=== PATIENT | male | born 1970 | race Caucasian/White ===

== ENCOUNTER 2023-01-13 10:26 | Outpatient (OUT) | payer BC, SELFPAY ==
--- NOTE | 2023-01-13 10:36 | XR_ITS ---
The [place] [id number] Patient Name: JORDEN ALEXANDRE MRN: [id number] date: 1970 Sex: M Assigned Patient Location: RAD Current Patient Location: [facility] Accession/Order Number: [id number] Exam Date: 01/13/2023 10:47 Report Date: 01/13/2023 11:11 At the request of: TONE BAIN Procedure: XR knee LT 3V EXAM: XR knee LT 3V HISTORY: Left knee pain M25.562 COMPARISON: None. TECHNIQUE: 3 views FINDINGS: No acute fracture or dislocation. No significant degenerative changes. Unremarkable soft tissues. XR/XR knee LT 3V IMPRESSION: Unremarkable exam. Electronically authenticated by: BLAINE RAMEY Date: 01/13/2023 11:11
== END 2023-01-13 10:27 | disposition home or self-care (01) ==
PROVIDERS: PCP Nurse Practitioner Family; Visit Provider Nurse Practitioner Family
DX: M25.562 Pain in left knee (principal)
CPT/HCPCS: 73562

== ENCOUNTER 2023-01-25 11:57 | Outpatient (OUT) | payer BC, SELFPAY ==
[2023-01-25 13:32] LABS: Estimated Average Glucose 123 mg/dL; Glycohemoglobin A1C 5.9 % (4.5-6.2)
[2023-01-26 12:09] LABS: Insulin 9.1 uIU/mL (2.6-24.9)
== END 2023-01-25 11:58 | disposition home or self-care (01) ==
LOC: LAB 11:59
PROVIDERS: PCP Nurse Practitioner Family; Visit Provider Nurse Practitioner Family
DX: B37.9 Candidiasis, unspecified (principal)
CPT/HCPCS: 36415; 83036; 83525

== ENCOUNTER 2023-04-25 11:03 | Emergency (ER) | payer BC, SELFPAY ==
[2023-04-25] VITALS (13 sets, daily range): BP systolic 134–160; BP diastolic 92–114; PULSE 75–95; RESP 12–17; TEMP 36.7; O2SAT 98; BMI 27.5
--- NOTE | 2023-04-25 11:18 | ECG_ITS ---
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
--- NOTE | 2023-04-25 11:18 | XR_ITS ---
The [address] [address] Patient Name: JORDEN ALEXANDRE MRN: [id number] date: 1970 Sex: M Assigned Patient Location: ER Current Patient Location: ER Accession/Order Number: [id number] Exam Date: 04/25/2023 11:33 Report Date: 04/25/2023 11:55 At the request of: MAXINE MAE Procedure: XR chest 1V EXAMINATION: XR chest 1V 04/25/2023 8:53 AM PST HISTORY: HTN, dizziness TECHNIQUE: Single frontal view of the chest acquired. COMPARISONS: None. FINDINGS: Lines/tubes/other: None. Heart and mediastinum: Cardiac silhouette is upper limits of normal for size. Bones: No acute osseous abnormality. Lungs: Mild linear atelectasis and/or scarring in the left base. Mild hazy opacification of the right base. No pulmonary edema. Pleura: There is no significant pleural effusion or pneumothorax. Other: None. XR/XR chest 1V IMPRESSION: Mild right basilar opacification. Differential includes atelectasis, aspiration, or pneumonia. Electronically authenticated by: EMILY OVALLE Date: 04/25/2023 11:55
--- NOTE | 2023-04-25 11:19 | ED_ITS ---
HPI - Dizziness General Chief Complaint: Dizziness Stated Complaint: HIGH BLOOD PRESSURE Time Seen by Provider: 04/25/23 11:10 Source: patient Mode of arrival: walk-in History of Present Illness HPI Narrative: new onset htn as PT for C5-C6 neck problems Dizziness/light-headedness with a couple episode of imbalance No ear pain or fullness but he does have ringing in the ears that worsens with movements of the head into certain positions. PCP is Karen Thapa. Related Data Home Medications Medication Instructions Recorded Confirmed cyclobenzaprine 10 mg tablet 10 mg PO .HS PRN muscle spasm 04/25/23 04/25/23 Previous Rx's Medication Instructions Recorded lisinopril 10 mg tablet 10 mg PO DAILY #30 tabs 04/25/23 Allergies Allergy/AdvReac Type Severity Reaction Status Date / Time Penicillins Allergy Severe Verified 04/25/23 11:16 Exam Narrative Exam Narrative: Nurses notes and vital signs reviewed and patient is not hypoxic. afebrile General: Well-appearing and in no apparent distress. Skin: Warm, dry, no pallor noted. No rash. Head: Normocephalic, atraumatic. Neck: Supple, no JVD or carotid bruits Eye: Pupils are equal, round and EOMI. No scleral icterus. Ears, Nose, Mouth, and Throat: TMs are clear, no nasal mucosal hypertrophy. Oral mucosa is moist Cardiovascular: Regular Rate and Rhythm without murmur, gallop or rub. Respiratory: No accessory muscle use or respiratory distress. Lungs are clear to auscultation, no wheezing, rales or rhonchi Musculoskeletal: normal ROM Neurological: A&O x4. No cranial nerve dysfunction observed. No truncal ataxia. Moves all extremities. Sensation intact. Psychiatric: Cooperative and interactive. Normal mood and affect. Constitutional Vital Signs, click to edit/add: Last Vital Signs Temp 98.0 F 04/25/23 11:08 Pulse 76 04/25/23 12:40 Resp 13 04/25/23 12:40 BP 134/92 H 04/25/23 12:30 Pulse Ox 98 04/25/23 11:08 O2 Del Method Room Air 04/25/23 11:08 Course Vital Signs Vital signs: Vital Signs Temperature 98.0 F 04/25/23 11:08 Pulse Rate 82 04/25/23 11:08 Respiratory Rate 16 04/25/23 11:08 Blood Pressure 148/100 H 04/25/23 11:08 Pulse Oximetry 98 04/25/23 11:08 Oxygen Delivery Method Room Air 04/25/23 11:08 Temperature 98.0 F 04/25/23 11:08 Pulse Rate 76 04/25/23 12:40 Respiratory Rate 13 04/25/23 12:40 Blood Pressure 134/92 H 04/25/23 12:30 Pulse Oximetry 98 04/25/23 11:08 Oxygen Delivery Method Room Air 04/25/23 11:08 MDM - Dizziness MDM Narrative Medical decision making narrative: 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 Blood drawn and sent for evaluation. chest x-ray obtained. Workup was unremarkable. The patient's blood pressure responded to use of IV Vasotec and IV labetalol. He was discharged home with a prescription for lisinopril will follow-up with his primary care provider in a week or two to evaluate its effectiveness and adjust dose as needed. Lab Data Attestation: I reviewed the patient's lab results. Labs: Lab Results 04/25/23 Range/Units 11:28 WBC 6.4 (4.0-11.0) 10^3/uL RBC 5.65 (4.70-6.10) 10^6/uL Hgb 16.6 (14.0-18.0) g/dL Hct 50.0 (42.0-54.0) % MCV 88.5 (80.0-94.0) fL MCH 29.4 (25.9-34.0) pg MCHC 33.2 (29.9-35.2) g/dL RDW 12.6 (11.0-15.0) % Plt Count 293 (150-450) 10^3/uL MPV 9.3 L (9.5-13.5) fL Neut % (Auto) 71.2 (43.0-75.0) % Lymph % (Auto) 20.2 L (20.5-60.0) % Merrick % (Auto) 7.2 (1.7-12.0) % Eos % (Auto) 0.6 L (0.9-7.0) % Baso % (Auto) 0.5 (0.2-2.0) % Neut # (Auto) 4.6 (1.4-6.5) 10^3/uL Lymph # (Auto) 1.3 (1.2-3.8) 10^3/uL Merrick # (Auto) 0.5 (0.3-0.8) 10^3/uL Eos # (Auto) 0.0 (0.0-0.7) 10^3/uL Baso # (Auto) 0.0 (0.0-0.1) 10^3/uL Abs Immat Gran (auto) 0.02 (0.00-0.03) 10^3/uL Imm/Tot Granulo (auto) 0.3 (0.0-0.5) % Sodium 135 L (136-145) mmol/L Potassium 4.3 (3.5-5.1) mmol/L Chloride 98 (98-107) mmol/L Carbon Dioxide 28.0 (21.0-32.0) mmol/L Anion Gap 13.3 BUN 18.0 (7.0-18.0) mg/dL Creatinine 1.09 (0.70-1.30) mg/dL Est GFR ( Amer) >60 (>=60) Est GFR (Non-Af Amer) >60 (>=60) BUN/Creatinine Ratio 16.5 Glucose 101 (74-106) mg/dL Calcium 9.4 (8.5-10.1) mg/dL Imaging Data Chest x-ray: Attestation: I have reviewed the pertinent imaging results. Radiologist's impression: Patient Name: JORDEN ALEXANDRE MRN: [id number] date: 1970 Sex: M Assigned Patient Location: ER Current Patient Location: ER Accession/Order Number: [id number] Exam Date: 04/25/2023 11:33 Report Date: 04/25/2023 11:55 At the request of: MAXINE MAE Procedure: XR chest 1V EXAMINATION: XR chest 1V 04/25/2023 8:53 AM PST HISTORY: HTN, dizziness TECHNIQUE: Single frontal view of the chest acquired. COMPARISONS: None. FINDINGS: Lines/tubes/other: None. Heart and mediastinum: Cardiac silhouette is upper limits of normal for size. Bones: No acute osseous abnormality. Lungs: Mild linear atelectasis and/or scarring in the left base. Mild hazy opacification of the right base. No pulmonary edema. Pleura: There is no significant pleural effusion or pneumothorax. Other: None. IMPRESSION: Mild right basilar opacification. Differential includes atelectasis, aspiration, or pneumonia. Electronically authenticated by: EMILY OVALLE Date: 04/25/2023 11:55 ECG Data Attestation: I personally reviewed and interpreted this ECG as follows: Interpretation: EKG interpretation: Emergency Department physician interpretation. Normal sinus rhythm at 74bpm. Normal axis, normal intervals and nonspecific T-wave abnormality. no ST segment elevation or depression. Discharge Plan Discharge Chief Complaint: Dizziness Clinical Impression: Hypertension Patient Disposition: Home, Self-Care Time of Disposition Decision: 12:44 Prescriptions / Home Meds: New lisinopril 10 mg tablet 10 mg PO DAILY Qty: 30 0RF No Action cyclobenzaprine 10 mg tablet 10 mg PO .HS PRN (Reason: muscle spasm) Instructions: Hypertension (ED) Stand Alone Forms: Portal Instructions Referrals: TONE THAPA [Primary Care Provider] - 1 week
[2023-04-25] MEDS: ENALAPRILAT DIHYDRATE 1.25 MG/ML VIAL IV (11:35)
[2023-04-25 11:43] LABS: Basophils Percent Auto 0.5 % (0.2-2.0); Eosinophils Percent Auto 0.6 % (0.9-7.0); Hemoglobin 16.6 g/dL (14.0-18.0); Immature Granulocytes Abs Auto 0.02 10^3/uL (0.00-0.03); Immature Granulocytes Pct Auto 0.3 % (0.0-0.5); Lymphocytes Absolute Auto 1.3 10^3/uL (1.2-3.8); Lymphocytes Percent Auto 20.2 % (20.5-60.0); Mean Corpuscular HGB Conc 33.2 g/dL (29.9-35.2); Mean Corpuscular Hemoglobin 29.4 pg (25.9-34.0); Mean Corpuscular Volume 88.5 fL (80.0-94.0); Mean Platelet Volume 9.3 fL (9.5-13.5); Monocytes Absolute Auto 0.5 10^3/uL (0.3-0.8); Monocytes Percent Auto 7.2 % (1.7-12.0); Neutrophils Absolute Auto 4.6 10^3/uL (1.4-6.5); Neutrophils Percent Auto 71.2 % (43.0-75.0); Platelet Count 293 10^3/uL (150-450); Red Blood Count 5.65 10^6/uL (4.70-6.10); Red Cell Distribution Width 12.6 % (11.0-15.0); White Blood Count 6.4 10^3/uL (4.0-11.0)
[2023-04-25 11:52] LABS: Anion Gap 13.3; BUN Creatinine Ratio 16.5; Calcium 9.4 mg/dL (8.5-10.1); Chloride 98 mmol/L (98-107); Estimated GFR (African America >60 (>=60); Estimated GFR (Non-African Ame >60 (>=60); Glucose 101 mg/dL (74-106); Potassium 4.3 mmol/L (3.5-5.1); Sodium 135 mmol/L (136-145)
[2023-04-25] MEDS: LABETALOL HCL 20 MG/4 ML SYRINGE 10 MG IVP (12:30)
== END 2023-04-25 12:55 | disposition home or self-care (01) ==
PROVIDERS: Emergency Provider Emergency Medicine; PCP Nurse Practitioner Family
DX: I10 Essential (primary) hypertension (principal); Z79.899 Other long term (current) drug therapy
CPT/HCPCS: 36415; 71045; 80048; 85025; 93005; 96374; 96375; 99285

== ENCOUNTER 2023-05-10 13:49 | Outpatient (OUT) | payer BC, SELFPAY ==
--- NOTE | 2023-05-10 | XR_ITS ---
The [address] [address] Patient Name: JORDEN ALEXANDRE MRN: [id number] date: 1970 Sex: M Assigned Patient Location: [facility] Current Patient Location: Accession/Order Number: [id number] Exam Date: 05/10/2023 13:15 Report Date: 05/11/2023 01:43 At the request of: GURVINDER ADAMS Procedure: XR foot LT min 3V PROCEDURE: XR ankle LT min 3V, XR foot LT min 3V HISTORY: LEFT ANKLE PAIN , left foot pain since injury one month ago COMPARISON: None. FINDINGS: BONES:No fracture, acute abnormality, or significant arthropathy. SOFT TISSUES:No visible soft tissue swelling. EFFUSION:None visible. OTHER: Negative. XR/XR foot LT min 3V IMPRESSION: 1. No acute bone abnormality or significant degenerative changes of the left ankle and foot. Electronically authenticated by: MEDARDO DRIVER Date: 05/11/2023 01:43
--- NOTE | 2023-05-10 | XR_ITS ---
The [address] [address] Patient Name: JORDEN ALEXANDRE MRN: [id number] date: 1970 Sex: M Assigned Patient Location: [facility] Current Patient Location: Accession/Order Number: [id number] Exam Date: 05/10/2023 13:15 Report Date: 05/11/2023 01:43 At the request of: GURVINDER ADAMS Procedure: XR ankle LT min 3V PROCEDURE: XR ankle LT min 3V, XR foot LT min 3V HISTORY: LEFT ANKLE PAIN , left foot pain since injury one month ago COMPARISON: None. FINDINGS: BONES:No fracture, acute abnormality, or significant arthropathy. SOFT TISSUES:No visible soft tissue swelling. EFFUSION:None visible. OTHER: Negative. XR/XR ankle LT min 3V IMPRESSION: 1. No acute bone abnormality or significant degenerative changes of the left ankle and foot. Electronically authenticated by: MEDARDO DRIVER Date: 05/11/2023 01:43
== END 2023-05-10 13:50 | disposition home or self-care (01) ==
LOC: RAD 13:49
PROVIDERS: PCP Nurse Practitioner Family; Visit Provider Podiatrist Foot & Ankle Surgery
DX: M79.672 Pain in left foot (principal); M25.572 Pain in left ankle and joints of left foot
CPT/HCPCS: 73610; 73630

== ENCOUNTER 2023-05-23 12:59 | Outpatient (OUT) | payer BC, SELFPAY ==
--- NOTE | 2023-05-23 13:06 | MR_ITS ---
The [address] [address] Patient Name: JORDEN ALEXANDRE MRN: [id number] date: 1970 Sex: M Assigned Patient Location: MRI Current Patient Location: Accession/Order Number: [id number] Exam Date: 05/23/2023 13:25 Report Date: 05/24/2023 07:03 At the request of: GURVINDER ADAMS Procedure: MR ankle LT wo con EXAM: MR ankle LT wo con HISTORY: TARSAL TUNNEL SYNDROME COMPARISON: Comparison made to left ankle radiograph dated 05/10/2023. TECHNIQUE: Multiplanar, multisequence imaging of the left ankle was performed without the administration of intravenous or intra-articular gadolinium contrast. FINDINGS: There is motion degradation. There is no acute fracture or dislocation of the left ankle. Bone marrow signal is normal. The left talar dome, tibial plafond, ankle mortise are intact. There is no large left tibiotalar joint effusion. 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 The flexor tendons including the posterior tibialis, flexor digitorum longus, and flexor hallucis longus are normal and without tenosynovitis, tendinopathy, or tear. The extensor tendons including the anterior tibialis, extensor hallucis longus, and extensor digitorum longus are also normal without tenosynovitis, tendinopathy, or tear. The peroneus longus tendon appears normal. There is flattening of the retromalleolar portion of the left peroneus brevis tendon, possibly indicative of a short segment longitudinal split tear. Distally the left peroneus brevis attaches normally to the base of the fifth metatarsal. The Achilles tendon is normal. However, there is trace edema within the pre-Achilles fat pad. The anterior and posterior tibiofibular ligaments are intact. The anterior talofibular, calcaneofibular, and posterior talofibular ligaments are intact. The left anterior talofibular ligament is slightly thickened, possibly sequela of prior sprain. The deltoid ligament is normal. The sinus tarsi is normal. The plantar fascia is normal. There is no discrete mass lesion within the tarsal tunnel. MR/MR ankle LT wo con IMPRESSION: 1. No acute fracture or dislocation of the left ankle. 2. Flattening of the retromalleolar portion of the left peroneus brevis tendon. This may be indicative of a short segment longitudinal split tear. Correlate with physical examination and site of patient's pain. Distally, the left peroneus brevis tendon attaches normally to the base of the fifth metatarsal. 3. Trace edema within the left pre-Achilles fat pad. The Achilles tendon appears normal. 4. Intact medial and lateral left ankle ligaments. There is mild thickening of the left anterior talofibular ligament that may be indicative of prior mild sprain. Correlate with patient history. 5. Normal left sinus tarsi. 6. Normal left plantar fascia. 7. No discrete abnormality or mass lesion within the tarsal tunnel. Electronically authenticated by: HERMAN VALLE Date: 05/24/2023 07:03
== END 2023-05-23 13:00 | disposition home or self-care (01) ==
LOC: MRI 13:00
PROVIDERS: PCP Nurse Practitioner Family; Visit Provider Podiatrist Foot & Ankle Surgery
DX: G57.52 Tarsal tunnel syndrome, left lower limb (principal)
CPT/HCPCS: 73721

== ENCOUNTER 2023-07-10 11:21 | Outpatient (OUT) | payer BC, SELFPAY ==
--- NOTE | 2023-07-10 12:53 | CA_ITS ---
The 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 PVR waveforms with normal upstroke, amplitude and dicrotic notch. Right: - no significant pressure gradient between cuffs - normal TROY Left: - significant pressure gradient between the calf and DP cuff - normal TROY Impression: - normal arerial evaluation of the lower extremities w/o hemodynamic impairment of the B/L lower extremities at rest (right TROY 1.08, left TROY 1.02) - left DP index is inconsistent with the adjacent indices and likely erroneous - clinical correlation advised Electronically Signed On 07-11-2023 7:10:36 EST by CHRISTINE BUTLER
== END 2023-07-10 11:22 | disposition home or self-care (01) ==
PROVIDERS: PCP Nurse Practitioner Family
DX: G57.52 Tarsal tunnel syndrome, left lower limb (principal); G58.9 Mononeuropathy, unspecified; R09.89 Other specified symptoms and signs involving the circulatory and respiratory systems
CPT/HCPCS: 93923